=== PATIENT | female | born 1970 | race Caucasian/White ===

== ENCOUNTER → 2022-12-06 11:34 | Outpatient (CLI) | payer BC, SELFPAY ==
--- NOTE | ~2022-12-06 | MM_ITS ---
EXAMINATION: MM screening jesus BI w damien HISTORY: Screening mammogram TECHNIQUE: Craniocaudal and mediolateral oblique 3-D tomosynthesis images were obtained and synthetic 2-D images were generated. CAD analysis was submitted and interpreted. COMPARISON: 06/01/2018, 01/24/2017 BREAST PARENCHYMAL COMPOSITION: There are scattered areas of fibroglandular density. FINDINGS: No suspicious mass, calcification, or architectural distortion are identified in either cecil ast to suggest malignancy. There has been no suspicious interval change. IMPRESSION: 1. No mammographic evidence of malignancy. 2. Recommend routine screening mammography in one year. BI-RADS Category 1: Negative Reviewed, dictated and finalized at location A. ENISHMENT SPECIALIST
== END ==
PROVIDERS: PCP Family Medicine; Visit Provider Physician Assistant
DX: Z12.31 Encounter for screening mammogram for malignant neoplasm of breast (principal)
CPT/HCPCS: 77063; 77067

== ENCOUNTER 2024-01-28 11:49 | Outpatient (CLI) | payer BC, SELFPAY ==
--- NOTE | ~2024-01-28 | XR_ITS ---
EXAMINATION: XR femur LT min 2V DATE: 01/28/2024 12:18 INDICATION: Left thigh pain. TECHNIQUE: 2 views of left femur on 4 radiographs were obtained. COMPARISON: None. FINDINGS: Bone alignment is normal. No fracture. There is mild osteoarthritis of left hip and medial compartment of left knee characterized by tiny osteophytes. No knee joint effusion. IMPRESSION: 1. Mild polyarticular osteoarthritis. Reviewed, dictated and finalized at location E. ER MANAGEMENT PROFESSOR
== END 2024-01-28 11:50 ==
LOC: MICIMG 11:50
PROVIDERS: PCP Physician Assistant; Visit Provider Physician Assistant
DX: M16.12 Unilateral primary osteoarthritis, left hip (principal)
CPT/HCPCS: 73552

== ENCOUNTER 2024-05-14 10:12 | Outpatient (CLI) | payer BC, SELFPAY ==
--- NOTE | ~2024-05-14 | XR_ITS ---
EXAMINATION: XR cervical spine min 6V DATE: 05/14/2024 10:30 INDICATION: Radiculopathy, cervical region. TECHNIQUE: 8 views of cervical spine including standing views and flexion and extension views were ob tained. COMPARISON: None. FINDINGS: Bone alignment is normal. There is no abnormal motion on flexion or extension. Vertebral deb dy heights are normal. There is mildly decreased disc at C4-C5 and moderately decreased disc height a t C5-C6 and C6-C7. There is multilevel uncovertebral joint osteoarthritis, severe bilaterally at C5-C 6. There is multilevel mild facet joint osteoarthritis. There is mild bilateral neural foraminal sten osis at C5-C6 and C6-C7. There is mild central canal stenosis at C5-C6 and C6-C7. No prevertebral sof t tissue swelling. IMPRESSION: 1. Moderate cervical spondylosis. Reviewed, dictated and finalized at location A.
== END 2024-05-14 10:13 ==
PROVIDERS: PCP Family Medicine; Visit Provider Physician Assistant
DX: M47.22 Other spondylosis with radiculopathy, cervical region (principal)
CPT/HCPCS: 72052

== ENCOUNTER 2024-07-16 01:23 | Day surgery (SDC) | payer BC, SELFPAY ==
[2024-06-28 09:13] VITALS: BMI 27.1
[2024-07-16 06:22] VITALS: BP 142/76; PULSE 87; RESP 18; TEMP 36.1; O2SAT 100
[2024-07-16] MEDS: LACTATED RINGERS 1,000 ML 150 ML IV CONT (06:30)
--- NOTE | 2024-07-16 07:24 | WPDANESEPPF ---
Anes - Initial Pre Proc Eval Procedure: Operation Date: 07/16/24 07:30 Proposed Procedures p Colonoscopy - Jassi Light MD Date/Time: 07/16/24 07:24 Surgeon: Jassi Light MD Pre Op Diagnosis: Other fecal abnormalities Patient Data Age: 53 Gender: F Height: 1.6 m Weight: 70.1 kg Last Vital Signs Temp 97 F L 07/16/24 06:22 Pulse 87 07/16/24 06:22 Resp 18 07/16/24 06:22 BP 142/76 H 07/16/24 06:22 Pulse Ox 100 07/16/24 06:22 O2 Del Method Room Air 07/16/24 06:22 Allergies Allergy/AdvReac Type Severity Reaction Status Date / Time erythromycin base Allergy Unknown Hives Verified 07/16/24 06:19 Penicillins Allergy Unknown Hives Verified 07/16/24 06:19 Home Medications Medication Instructions Recorded Confirmed Type clobetasol 0.05 % topical cream 1 applic topical DAILY PRN 11/24/23 06/28/24 History psoriasis enalapril maleate 20 mg tablet See Rx Instructions .Route 02/07/24 06/28/24 Rx .COMPLEX #90 tabs diclofenac sodium 75 mg 75 mg PO BID PRN pain 30 days #60 05/14/24 06/28/24 Rx tablet,delayed release tabs atorvastatin 20 mg tablet 40 mg PO DAILY 90 days #180 tabs 06/01/24 06/28/24 Rx Patient hx anesthesia problems: none Family hx anesthesia problems: none Results Review: All pre-operative results and documents have been reviewed as part of the pre-operative evaluation. [facility] Past Medical History Medical History Essential (primary) hypertension Mixed hyperlipidemia Psoriasis Surgical History Surgical History History of History of D&C X 3 History of lipoma excision History of lymph node excision History of uterine fibroid excision Family History Family History Father Hypertension Mother Cerebrovascular accident Grandparent Carcinoma of colon Family history of pancreatic cancer Social History Social History (Updated 05/14/24 @ 09:36 by Bette Mac MA) Smoking status: Former smoker Smoking end date: 11/28/16 Alcohol intake: current Drinks per week: 2 Substance use: never Substance use type: does not use Do You Feel Safe in your Home?: Yes Lack of Transportation: No Lack of Food: Never True Current Housing: I Have Housing Concerned About Future Housing: No Difficulty Paying Gas/Electric Bills: No Difficulty Paying for Meds: No Currently Unemployed: No Education: High School Diploma/GED Difficulty w/ Childcare or Family Care: No Living arrangements: with family Occupation/Education: occupation Gender identity (if verbalized by the patient): Female Sexual Orientation (if Verbalized by the Patient): Straight or Heterosexual Spiritual care concerns: No Anes - Eval Final PreProcedure Day of Procedure 07/16/24 07:24 Patient weight: normal Heart: regular rate and rhythm Lungs: clear to auscultation Airway: Mallampati scale class II Neurological: alert and oriented Last oral intake: >/= 8 hours ASA classification: III Emergent: no Anesthetic plan: proceed Anesthesia type and monitoring: general GIVS and standard monitoring Results Review: All pre-operative results and documents have been reviewed as part of the pre-operative evaluation. Informed Consent: The patient's anesthetic plan and its attendant risks and benefits were discussed with the patient/family/POA. Questions were solicited and answers provided to the satisfaction of the patient/family/POA.
--- NOTE | 2024-07-16 07:31 | PM.HPGS ---
History of Present Illness History of Present Illness Consent: Risks, benefits, and alternatives have been discussed and questions answered. Patient agrees to proceed with procedure. Chief complaint: Other fecal abnormalities Narrative: Sissy Salinas is a 53 year old female here for first colonoscopy, + cologuard Review of Systems Review of Systems: All systems reviewed & are unremarkable except as noted in HPI and below PMFSH Past Medical History Medical History (Updated 07/16/24 @ 07:32 by Jassi Light MD) Essential (primary) hypertension Mixed hyperlipidemia Positive colorectal cancer screening using Cologuard test Psoriasis Surgical History Surgical History History of History of D&C X 3 History of lipoma excision History of lymph node excision History of uterine fibroid excision Family History Family History Father Hypertension Mother Cerebrovascular accident Grandparent Carcinoma of colon Family history of pancreatic cancer Social History Social History (Updated 05/14/24 @ 09:36 by Bette Mac MA) Smoking status: Former smoker Smoking end date: 11/28/16 Alcohol intake: current Drinks per week: 2 Substance use: never Substance use type: does not use Do You Feel Safe in your Home?: Yes Lack of Transportation: No Lack of Food: Never True Current Housing: I Have Housing Concerned About Future Housing: No Difficulty Paying Gas/Electric Bills: No Difficulty Paying for Meds: No Currently Unemployed: No Education: High School Diploma/GED Difficulty w/ Childcare or Family Care: No Living arrangements: with family Occupation/Education: occupation Gender identity (if verbalized by the patient): Female Sexual Orientation (if Verbalized by the Patient): Straight or Heterosexual Spiritual care concerns: No Meds Home Medications and Allergies Home Medications Medication Instructions Recorded Confirmed Type clobetasol 0.05 % topical cream 1 applic topical DAILY PRN 11/24/23 06/28/24 History psoriasis enalapril maleate 20 mg tablet See Rx Instructions .Route 02/07/24 06/28/24 Rx .COMPLEX #90 tabs diclofenac sodium 75 mg 75 mg PO BID PRN pain 30 days #60 05/14/24 06/28/24 Rx tablet,delayed release tabs atorvastatin 20 mg tablet 40 mg PO DAILY 90 days #180 tabs 06/01/24 06/28/24 Rx Allergies Allergy/AdvReac Type Severity Reaction Status Date / Time erythromycin base Allergy Unknown Hives Verified 07/16/24 06:19 Penicillins Allergy Unknown Hives Verified 07/16/24 06:19 Vital Signs Vital Signs - 24 hr 07/16/24 06:22 Temperature 97 F L Pulse Rate 87 Respiratory Rate 18 Blood Pressure 142/76 H Pulse Oximetry 100 Oxygen Delivery Room Air Exam Const: General: comfortable and no acute distress HENMT: Face/Nose/Sinus: Normal nares present Eyes: General: appearance normal, both eyes and all related structures Neck: Neck: no JVD Resp: Auscultation: clear to auscultation bilaterally Cardio: Rate: regular rate Rhythm: regular rhythm GI: Inspection: non-distended GI Palp: Yes Soft to palpation Skin: General skin exam: normal color Neuro: General: gait normal Speech: normal speech Extrem: General: normal to inspection Psych: Mental Status: mental status grossly normal Assessment and Plan Assessment and plan (1) Positive colorectal cancer screening using Cologuard test: Code(s): R19.5 - Other fecal abnormalities Status: Acute Assessment and Plan: colonoscopy
[2024-07-16 07:53] VITALS: BP 102/57; PULSE 85; RESP 18; O2SAT 100
[2024-07-16 08:03] VITALS: BP 121/70; PULSE 87; RESP 19; O2SAT 100
[2024-07-16 08:13] VITALS: BP 166/77; PULSE 77; RESP 12; O2SAT 100
== END 2024-07-16 08:29 | disposition home or self-care (01) ==
PROVIDERS: PCP Family Medicine; Visit Provider Internal Medicine Gastroenterology
PROC: 0DJD8ZZ Inspection of Lower Intestinal Tract, Via Natural or Artificial Opening Endoscopic (ICD-10-PCS; CPT 45378; principal; 2024-07-16 07:30)
DX: D12.2 Benign neoplasm of ascending colon (principal); D12.4 Benign neoplasm of descending colon; D12.5 Benign neoplasm of sigmoid colon; K64.8 Other hemorrhoids; I10 Essential (primary) hypertension; E78.5 Hyperlipidemia, unspecified; L40.9 Psoriasis, unspecified; Z98.890 Other specified postprocedural states; Z87.891 Personal history of nicotine dependence; Z86.018 Personal history of other benign neoplasm; Z80.0 Family history of malignant neoplasm of digestive organs; Z82.49 Family history of ischemic heart disease and other diseases of the circulatory system
CPT/HCPCS: 45385; 88305; J7120

== ENCOUNTER 2025-05-20 13:41 | Outpatient (RCR) | payer BC, SELFPAY ==
--- NOTE | 2025-05-20 14:40 | PTOPEVAL1 ---
Assessment and note entered by Seth Samuels Evaluation Information Assessment Status Evaluation ICD-10 Condition Codes (PT) Cervicalgia M54.2 Onset 05/20/24 Subjective Information Pt. recalls no specific incident. She reports she woke with neck pain about 1 year ago. She underwent x-ray last year. She states that the x- ray revealed OA in her neck. She reports that the pain briefly went away, but has since returned. She reports that that she is no experiencing pain in the right arm and her first 3 fingers are going numb. She states that she has constant pain in her neck, however her most intense pain is in her upper arm. She states that pain does not disrupt her sleep. She states that pain is most intense with sitting activities, and cannot sit in one position for very long. Pain in her right arm gets more intense with driving. She reports that she is able to complete all IADL's despite her neck and right arm pain. She states that her goal is to reduce her arm pain. Reported Pain Level Pain Score 3,9: Self Report Assessment PT Clinical Summary Pt. is a 54 year old female who enters the clinic with a diagnosis of neck pain. She presents with cervical radiculopathy resulting in tricep weakness on the right, impaired c-spine ROM, impaired postural awareness and constant pain. Continued skilled PT is indicated in order to improve these areas to allow for improved comfort with all IADL's. Plan of Care Interventions Electrical Stimulation,Hot Pack/Cold Pack,Manual Therapy,Mechanical Traction,Neuro Re-education, Patient/Caregiver Education,Therapeutic Activities ,Therapeutic Exercise PT Services Indicated Yes Treatment Frequency and 2x/week x 10 visits. Duration These treatments will address the objective and functional deficits as defined above. The patient will be advanced safely and appropriately in order for the patient to progress towards his/her prior level of function. Additional exercises will be introduced and as well as a comprehensive home exercise program upon discharge, if needed, ?to ensure carryover of functional gains achieved in the clinic. This treatment plan has been reviewed and agreement upon by the patient.
--- NOTE | 2025-06-19 17:44 | OPREHPOC ---
Outpatient Therapy Plan of Care This is a Multidisciplinary Plan of Care that may contain components documented by all disciplines (PT, OT, and ST.) PT Problem 1 PT Problem #1 Knowledge Deficit PT Goal 1 Goal / Goal Update Pt. will be independent with a HEP addressing postural awareness. Target Visit 2 Progress Met PT Problem 2 PT Problem #2 Impaired Range of Motion PT Goal 1 Goal / Goal Update Pt. will present with 75 degree cervical rotation bilateral to improve visual field with driving. - met Target Visit 10 Progress Met PT Problem 3 PT Problem #3 Impaired Strength PT Goal 1 Goal / Goal Update Pt. will present with 5/5 right tricep strength. Target Visit 10 Progress Met PT Problem 4 PT Problem #4 Impaired Functional Mobility PT Goal 1 Goal / Goal Update Pt. will present with less than 5% limitation on the NDI -met Pt. will report 75% reduction in right u.e. pain with all daily activities. -met Target Visit 10 Progress Met
--- NOTE | 2025-06-19 17:44 | PTOPDC ---
Assessment and note entered by Jessica Llanes, PT Evaluation Information Assessment Status Discharge ICD-10 Condition Codes (PT) Cervicalgia M54.2 Onset 05/20/24 Subjective Information Pt reports that her pain is a lot better compared to before she started PT and no longer has pain. Her numbness into the hand is still present but infrequent and short-lived and only occurs when she's at rest. Pt reports she's continued to work on her posture and wears a posture corrector for about 4 hours a day and feels like it's helping. She also notes being able to sleep in any position without pain. Reported Pain Level Pain Score 3,0: Self Report Assessment PT Clinical Summary Mrs. Salinas has attended 10 skilled PT visits for neck pain with pain radiating into the shoulder blade region and down the arm. She now denies pain and notes only occasional numbness when at rest. She has met goals addressing UE strength and cervical ROM. She has been independent with her HEP and is appropriate for discharge from skilled PT this date. Plan of Care PT Services Indicated No
== END 2025-06-19 20:00 | disposition home or self-care (01) ==
LOC: CHSPT 13:41
DX: M54.2 Cervicalgia (principal); M67.919 Unspecified disorder of synovium and tendon, unspecified shoulder
CPT/HCPCS: 97012; 97014; 97110; 97112; 97140; 97161; G0283